=== PATIENT | female | born 1955 | race Caucasian/White ===

== ENCOUNTER 2019-04-06 11:45 | Inpatient (IN) ==
--- NOTE | 2019-03-30 10:28 | PAT Medication Instructions ---
Medication Instructions Date of Service March 30, 2019 Home Medications cholecalciferol (vitamin D3) [Vitamin D3] 1,000 unit PO DAILY lysine [L-Lysine] 500 mg PO DAILY kfhcdynm-pee-qimr-FA-lutein [Centrum Silver Women] 1 tab PO DAILY STOP taking 2 weeks before surgery lysine [L-Lysine] 500 mg PO DAILY DO NOT take the morning of surgery cholecalciferol (vitamin D3) [Vitamin D3] 1,000 unit PO DAILY xnrjkpbi-ufn-tlyv-FA-lutein [Centrum Silver Women] 1 tab PO DAILY Take morning of surgery NOTHING TO EAT OR DRINK AFTER MIDNIGHT Other Notes If you have any questions please call us at [phone] or [phone] or [phone] or [phone]
--- NOTE | 2019-03-30 15:35 | Anesthesiology Consultation ---
Date of Service March 30, 2019 Assessment & Plan (1) Encounter for pre-operative examination: - No previous anesthesia records available. Chart Review Chart Review: Acceptable Risk for Surgery and Patient seen in Pre Admission Testing Consults Requested medical (Dr. Edmundo Huynh (04/02)) Patient was seen by PCPs office on 04/02/19 for preoperative evaluation. Per note from that visit, "Patient doing well, no concerns. Pre-procedural testing with no abnormalities. Clear to proceed with planned surgical procedure." Teaching & Discussion Pre-Anesthesia Teaching/Discussion Notes: Instructed NPO after midnight before surgery, except medications with 15 cc of water. Medication instructions provided according to the PAT guidelines. History Surgery Operation Date: 04/06/19 13:05 Proposed Procedures p L4-S1 Lumbar Decompression and Fusion with Spinal Cord Monitoring - [place], Height/Weight Height: 5 ft 7.5 in Weight: 63.7 kg Allergies Allergy/AdvReac Type Severity Reaction Status Date / Time latex Allergy Unknown itchy rash Verified 03/27/19 13:39 Medications Home Medications Medication Instructions Recorded Confirmed Last Taken cholecalciferol (vitamin D3) 1,000 unit PO DAILY 03/27/19 03/27/19 Unknown [Vitamin D3] lysine [L-Lysine] 500 mg PO DAILY 03/27/19 03/27/19 Unknown ewbydtjw-fvq-dynl-FA-lutein 1 tab PO DAILY 03/27/19 03/27/19 Unknown [Centrum Silver Women] Past Medical History Medical History Spinal stenosis Spondylisthesis Exercise / Class Metabolic Activity II 4-5 Yardwork/Stairs/Walk up hill (Less active in the last 2 months due to back pain and numbness in left foot. Able to climb stairs. Denies CP or SOB with activity. Does state that pain seems to take her breath away at times. ) Past Family History Family History Other Family history of diabetes mellitus (DM) Past Surgical History Surgical History History of appendectomy History of colonoscopy History of hysterectomy "COMPLETE" History of tonsillectomy and adenoidectomy Past Anesthesia History No Hx of Anesthesia Complications and No Family Hx of Anesthesia Complications History of PONV No Hx of PONV and No Hx of Motion Sickness Social History Smoking Status: Never smoker Do You Dip or Chew Tobacco: No Hx Alcohol Use: No Hx Substance Use: No substance use type: does not use Review of Systems Patient denies chest pain, shortness of breath, dyspnea on exertion, reflux, cough, wheezing, palpitations. +Joint Pain (Back) +Heart Palpitations (rare - PCP is not concerned, worse with anxiety) Physical Exam Vital Signs BP: 136/80 P: 87 R: 16 T: 98.2 SPO2: 100% on RA ENMT Thyromental Distance: > or= 3.5 Finger Breadths (4) Mallampati Class: I Neck normal visual inspection and trachea midline; neck extension not limited Respiratory normal respiratory effort Auscultation: lungs clear to auscultation bilaterally Cardiovascular Rate/Rhythm: regular rate and regular rhythm Heart Sounds: no murmur Neurologic moves all extremities Psychiatric Orientation: alert and oriented x 3 Testing Laboratory Results 03/30/19 16:03 03/30/19 16:03 PT 10.1 Seconds (9.0-12.0) 03/30/19 16:03 INR 1.0 (0.9-1.1) 03/30/19 16:03 APTT 25.9 Seconds (21.0-31.0) 03/30/19 16:03 Urine Color Yellow 03/30/19 Unknown Urine Appearance Clear (Clear) 03/30/19 Unknown Urine pH 8.0 (4.5-7.5) H 03/30/19 Unknown Ur Specific [place] 1.011 (1.000-1.030) 03/30/19 Unknown Urine Protein Negative (Negative) 03/30/19 Unknown Urine Glucose (UA) Negative (Negative) 03/30/19 Unknown Urine Ketones Negative (Negative) 03/30/19 Unknown Urine Nitrite Negative (Negative) 03/30/19 Unknown Ur Leukocyte Esterase Negative (Negative) 03/30/19 Unknown Urine WBC (Auto) 0 /hpf (0-5) 03/30/19 Unknown Urine RBC (Auto) 0-4 /hpf (0-4) 03/30/19 Unknown U Hyaline Cast (Auto) 0 /lpf (0-5) 03/30/19 Unknown U Epithel Cells (Auto) 0-5 /lpf (0-5) 03/30/19 Unknown Urine Bacteria (Auto) Negative (Negative) 03/30/19 Unknown Blood Type O Positive 03/30/19 16:03 Antibody Screen NEGATIVE 03/30/19 16:03 Electrocardiogram Date: 03/30/19 Findings: + NSR @ (84) Chest X-Ray Date: 03/30/19 Findings: + NAD
--- NOTE | 2019-03-30 16:27 | XRay Report ---
XR chest Pre-admission PA/Lat CLINICAL HISTORY: PAT preoperative evaluation COMPARISON STUDY: No previous studies for comparison. FINDINGS: The bones soft tissues and hemidiaphragms are normal. The cardiomediastinal silhouette is n ormal. The lungs are clear. The pulmonary vasculature is normal. IMPRESSION: Negative chest. The above report was generated using voice recognition software. It may contain grammatical, syntax or spelling errors. Electronically signed by: Jun Salinas M.D. 03/30/2019 4:26 PM
[2019-03-30 16:29] LABS: Basophils # (auto) 0.04 K/uL (0-0.2); Basophils % (auto) 0.7 %; Eosinophils # (auto) 0.08 K/uL (0-0.5); Eosinophils % (auto) 1.4 %; Hematocrit (blood only) 42.8 % (37-47); Hemoglobin 14.6 g/dL (12.0-16.0); Immature Granulocytes # (auto) 0.02 K/uL (0.00-0.02); Immature Granulocytes % (auto) 0.4 %; Lymphocytes % (auto) 23.3 %; Mean Corpuscular Hgb Conc 34.1 g/dL (32-36); Mean Corpuscular Volume 92.2 fL (80-100); Mean Platelet Volume 10.6 fL (7.4-10.4); Monocytes # (auto) 0.61 K/uL (0.11-0.59); Monocytes % (auto) 10.9 %; Neutrophils # (auto) 3.53 K/uL (1.4-6.5); Neutrophils % (auto) 63.3 %; Platelet Count 246 K/uL (130-400); RDW Coefficient of Variation 13.2 % (11.5-14.5); RDW Standard Deviation 44.3 fL (36.4-46.3); Red Blood Count 4.64 M/uL (4.2-5.4); White Blood Count 5.58 K/uL (4.8-10.8)
[2019-03-30 16:35] LABS: Appearance Urine Clear (Clear); Bacteria Urine Automated Negative (Negative); Bilirubin Urine Negative (Negative); Blood Urine Trace (Negative); Cast Urine Automated 0 /lpf (0-5); Color Urine Yellow; Epithelial Cell Urine Auto 0-5 /lpf (0-5); Glucose Urine UA Negative (Negative); Ketones Urine Negative (Negative); Leukocyte Esterase Urine Negative (Negative); Nitrite Urine Negative (Negative); Protein Urine Negative (Negative); RBC Urine Automated 0-4 /hpf (0-4); Specific Gravity Urine 1.011 (1.000-1.030); Urobilinogen Urine Negative (Negative); WBC Urine Automated 0 /hpf (0-5)
[2019-03-30 16:37] LABS: BUN Creatinine Ratio 12.9 (10-20); Calcium 9.3 mg/dl (8.5-10.1); Creatinine Clr Calc Pharmacy 86.8 ml/min; Est GFR (African American) 108.5; Est GFR (Non-African American) 93.6; Potassium 3.9 mmol/L (3.5-5.1)
[2019-03-30 16:40] LABS: Partial Thromboplastin Time 25.9 Seconds (21.0-31.0); Prothrombin Time 10.1 Seconds (9.0-12.0)
[~2019-04-06 11:45] MED LIST: ACETAMINOPHEN 500 MG TAB PO SCH; CEFAZOLIN 1000MG 1,000 MG/7.5 ML SYR IV SCH; CeleBREX 200 MG CAP PO SCH; DEXAMETHASONE SOD INJ 4 MG/ML VIAL ONE; GABAPENTIN 300 MG CAP PO SCH; GLYCOPYRROLATE 0.2 MG/ML VIAL ONE; HYDROmorphone INJ 2 MG/ML SYR/VIAL ONE; LARYING-O-JET KIT (LTA) ONE; LIDOCAINE HCL 2% 2 ML VIAL/AMP(20MG/ML) INFIL ONE; LR 15ML/HR IV SCH; MIDAZOLAM HCL 1 MG/ML 2ML VIAL ONE; NEOSTIGMINE METHYLSULFATE 1 MG/ML 10ML VIAL ONE; ONDANSETRON INJ 2 MG/ML 2 ML VIAL ONE; PROPOFOL IV EMULSION 10 MG/ML 20 ML VIAL IV ONE; fentaNYL citrate 100 MCG/2 ML VIAL ONE
[2019-04-06] MEDS ORDERED: ONDANSETRON INJ 2 MG/ML 2 ML VIAL IV PRN ×2 (12:53→17:47)
[2019-04-06] MEDS ORDERED: LABETALOL HCL IV 5 MG/ML 20ML IV PRN (12:53)
[2019-04-06] MEDS ORDERED: ATROPINE SULFATE 0.1 MG/ML 10ML SYR IV PRN (12:53)
[2019-04-06] MEDS ORDERED: HYDROmorphone INJ 1 MG/ML SYRINGE IV PRN (12:53)
--- NOTE | 2019-04-06 12:55 | History & Physical Bridge Note ---
Date of Service April 06, 2019 History & Physical Bridge Note I have examined the patient, reviewed the History & Physical and in the interval since the performance of the History & Physical I have noted the following changes of clinical significance: no changes noted
--- NOTE | 2019-04-06 12:56 | History & Physical Report ---
Date of Service April 06, 2019 Assessment & Plan (1) Spinal stenosis, lumbar region with neurogenic claudication: Lumbar decompression and fusion L4-S1 Present on Admission?: Yes History of Present Illness Chief Complaint: Back and leg pain Primary Care Provider: Edmundo Huynh This is a 63-year-old female presents with chronic persistent back and leg pain after failing extensive course of nonoperative care is here for surgical intervention. Allergies Allergy/AdvReac Type Severity Reaction Status Date / Time latex Allergy Unknown itchy rash Verified 04/06/19 12:22 Home Medications Home Medications Medication Instructions Recorded Confirmed Type cholecalciferol (vitamin D3) 1,000 unit PO DAILY 03/27/19 04/06/19 History [Vitamin D3] lysine [L-Lysine] 500 mg PO DAILY 03/27/19 04/06/19 History yocbidur-sje-xutn-FA-lutein 1 tab PO DAILY 03/27/19 04/06/19 History [Centrum Silver Women] Past Med/Surg History Social History Preferred Language: Burkinan Communication Ability: Effective Physics Tutor Required: No Beliefs That Will Affect Care: None Current Living Situation: Spouse Other Information That Helps Us Care for You: No Feels Safe at Home: Yes Smoking Status: Never smoker Do You Dip or Chew Tobacco: No ; Hx Alcohol Use: No Hx Substance Use: No Physical Exam Physical Exam: Patient alert and oriented neurologically intact. Results & Data Vital Signs (Past 12 Hours) Vital Signs Temp Pulse Resp BP Pulse Ox 04/06/19 12:28 36.6 C 98 H 20 150/84 H 99
[2019-04-06] MEDS ORDERED: BACITRACIN INJ 50,000 UNIT VIAL ONE (13:15)
[2019-04-06] MEDS ORDERED: BUPIVACAINE/EPINEPHRINE 0.5% MPF 1:200,000 30 ML VIAL ONE (13:15)
[2019-04-06] MEDS ORDERED: FLOSEAL HEMOSTATIC MATRIX 10ML TOP ONE (14:05)
[2019-04-06] MEDS ORDERED: PHENYLEPHRINE 100MCG/ML 5ML SYR ONE ×2 (14:34→15:53)
[2019-04-06] MEDS ORDERED: ALBUMIN HUMAN 5% 12.5 GM/250 ML VIAL IV ONE ×3 (14:47→15:54)
--- NOTE | 2019-04-06 16:18 | Operative Report ---
Post Operative Report Pre & Post Diagnosis Operation Date: 04/06/19 13:05 Pre-Op Diagnosis: LUMBAR SPINAL STENOSIS W/NEUROGENIC CLAUDICATION L4-S1 Lumbar spondylolisthesis L4-5 L5-S1 Post-Op Diagnosis: Same Procedure Operation Date: 04/06/19 13:05 Actual Procedures #1 lumbar decompression with bilateral medial facetectomies and foraminotomies L3-4 L4-5 L5-S1. #2 posterior spinal fusion L4-5 L5-S1. #3 placement posterior instrumentation L4-5 L5-S1. #4 interbody fusion L4-5 L5-S1. #5 placed a peek cage 10 x 22 mm at L4-5 13 x 22 mm at L5-S1. #6 treatment of local autograft in the posterior lateral gutters per #7 patient infuse collagen sponge, mass graft the posterior gutters and ostial amp and interbody space. Surgeon [place], Social Media Marketing Analyst Rocio Alexandra Estimated Blood Loss 1,000 Findings See Below Patient had severe spinal stenosis with spondylolisthesis and marked adhesion to the dura throughout the decompression. This combined with 1000 cc blood loss created significant technical difficulty adding at least 50% increase in operative time. Specimens None Indications This is a 63-year-old female who presents with above-mentioned diagnosis after failing extensive course of nonoperative care is here for the above-mentioned procedure. Description of Procedure Patient was met with identified and informed consent obtained. Patient was then taken to the operative suite underwent intubation placed in the prone position the Sachin table on top of the Donovan frame. All bony prominences lumbar spine was prepped and draped in a normal sterile fashion. Sharp dissection with the assistance of Bovie cautery was performed down to and exposing the lamina transverse processes of L for L5 and S1 levels bilaterally. From a caudal to cephalad fashion complete laminectomy L5 for partial laminectomy of L3 was performed including bilateral medial facetectomies and foraminotomies addressing severe spinal stenosis. Marked adhesion to the dura from the inflammation was noted and addressed. After this complete pedicle screws were placed in L4-L5 and S1 levels bilaterally with assistance of fluoroscopy the purposes mayo placed. By way of a transforaminal approach on the right complete discectomy of L5-S1 is performed endplates curetted to subcortical being bone and a 13 x 22 mm peek cage filled with ostium bone graft tapped in position. Then proceeded L for 5. By way of a transforaminal approach and left complete discectomy was performed endplates curetted to subcortical being bone and a 10 x 22 mm peek cage filled with ostium bone graft tapped in position. The rods were then locked in final position bilaterally. The transverse processes of L for L5 and the sacral ala bur to subcortical being bone. Infuse collagen sponge mass graft and local autograft placed in the posterior lateral gutters. 15 round AKIN drain inserted. Incision was then closed with 1 Vicryl in the fascia 2-0 Vicryl substantially and 4 Monocryl for final skin closure. Steri-Strip sterile dressings placed. Patient will continue PACU stable disc. Please note Rocio Alexandra present throughout the entire procedure involved the patient positioning complex portions of the surgery and final skin closure. Lastly spinal cord monitoring was utilized that the procedure no changes noted. I attest to the content of the Intraoperative Record and any orders documented therein. Any exceptions are noted below.
[2019-04-06] MEDS ORDERED: ONDANSETRON INJ 2 MG/ML 2 ML VIAL ONE (16:40)
--- NOTE | 2019-04-06 16:40 | Fluoroscopy Report ---
FL lumbar spine 2-3V CLINICAL HISTORY: L4-S1 LUMBAR DECOMPRESSION AND FUSION COMPARISON STUDY: None FLUOROSCOPY TIME: 20 seconds NUMBER OF FLUOROSCOPIC IMAGES: 2 FINDINGS: Image intensifier utilized for a lower lumbar laminectomy and fusion IMPRESSION: Image intensifier usage for an L4-S1 laminectomy and fusion The above report was generated using voice recognition software. It may contain grammatical, syntax or spelling errors. Electronically signed by: Jun Salinas M.D. 04/06/2019 4:39 PM
--- NOTE | 2019-04-06 17:27 | Anesthesiology Progress Note ---
Date of Service April 06, 2019 Anesthesia Post Procedure Vital Signs Vital Signs: Temp Pulse Pulse Resp BP Pulse Ox 04/06/19 17:20 36.4 C L 85 20 100/51 L 99 04/06/19 17:10 36.3 C L 85 16 104/50 L 99 04/06/19 17:00 93 H 16 105/48 L 100 04/06/19 16:50 88 18 103/46 L 100 04/06/19 16:40 87 12 102/50 L 100 04/06/19 16:34 36.9 C 88 15 116/51 L 100 04/06/19 12:28 36.6 C 98 H 20 150/84 H 99 Pain Intensity Bilateral Medial Back: Pain Intensity: 2 Back: Pain Intensity: 4 Notes Mental Status: alert / awake / arousable and participated in evaluation Nausea / Vomiting: adequately controlled Pain: adequately controlled Airway Patency, RR, SpO2: stable & adequate BP & HR: stable & adequate Hydration State: stable & adequate
--- NOTE | 2019-04-06 17:31 | Anesthesiology Progress Note ---
Date of Service April 06, 2019 Anesthesia Post Procedure Vital Signs Vital Signs: Temp Pulse Pulse Resp BP Pulse Ox 04/06/19 17:20 36.4 C L 85 20 100/51 L 99 04/06/19 17:10 36.3 C L 85 16 104/50 L 99 04/06/19 17:00 93 H 16 105/48 L 100 04/06/19 16:50 88 18 103/46 L 100 04/06/19 16:40 87 12 102/50 L 100 04/06/19 16:34 36.9 C 88 15 116/51 L 100 04/06/19 12:28 36.6 C 98 H 20 150/84 H 99 Pain Intensity Bilateral Medial Back: Pain Intensity: 2 Back: Pain Intensity: 4 Transfer of Care Handoff Completed per policy Notes Mental Status: alert / awake / arousable and participated in evaluation Patient Amnestic to Procedure: Yes Nausea / Vomiting: adequately controlled Pain: adequately controlled Airway Patency, RR, SpO2: stable & adequate BP & HR: stable & adequate Hydration State: stable & adequate Anesthetic Complications: no major complications apparent and Pt Satisfied with anesthetic care
[2019-04-06] MEDS ORDERED: ONDANSETRON 4 MG TAB PO PRN (17:47)
[2019-04-06] MEDS ORDERED: PROMETHAZINE HCL 12.5 MG in SODIUM CHLORIDE 0.9% 50 ML IV PRN (17:47)
[2019-04-06] MEDS ORDERED: FAMOTIDINE 20 MG TAB PO PRN (17:47)
[2019-04-06] MEDS ORDERED: LORazepam 0.5 MG/1 ML VIAL IV PRN (17:47)
[2019-04-06] MEDS ORDERED: HYDROmorphone INJ 0.5 MG/0.5 ML SYR IV PRN (17:47)
[2019-04-06] MEDS ORDERED: MAGNESIUM HYDROXIDE SUSP 30 ML UDC PO PRN (17:47)
[2019-04-06] MEDS ORDERED: ALUMINUM/MAGNESIUM SUSP 30 ML UDC PO PRN (17:47)
[2019-04-06] MEDS ORDERED: BISACODYL 10 MG SUPP PR PRN (17:47)
[2019-04-06] MEDS ORDERED: DO NOT ADMINISTER FLU VACCINE PRN (17:47)
[2019-04-06] MEDS ORDERED: NALOXONE HCL 0.4 MG/1 ML VIAL/CARP IV PRN (17:47)
[2019-04-06] MEDS ORDERED: METOCLOPRAMIDE HCL INJ 5 MG/ML 2 ML VIAL IV PRN (17:47)
[2019-04-06] MEDS ORDERED: DO NOT ADMINISTER PNEUMOCOCCAL VACCINE PRN (17:47)
[2019-04-06] MEDS ORDERED: ACETAMINOPHEN 1,000 MG/100 ML VIAL IV PRN (17:47)
[2019-04-06] MEDS ORDERED: SOD PHOSPHATE/SOD BIPHOSPHATE ENEMA 132 ML BTL PR PRN (17:47)
[2019-04-06] MEDS: KETOROLAC TROMETHAMINE 15 MG/ML VIAL IV SCH ×2 (18:24→23:18)
[2019-04-06] MEDS: LACTATED RINGER'S 1,000 ML IV SCH ×2 (18:24→22:35)
[2019-04-06 19:13] LABS: Hematocrit (blood only) 28.7 % (37-47); Hemoglobin 9.8 g/dL (12.0-16.0)
[2019-04-06] MEDS: CEFAZOLIN 1000MG 1,000 MG/7.5 ML SYR IV SCH (20:53)
[2019-04-06] MEDS: DOCUSATE SODIUM/SENNA 50/8.6MG TAB PO SCH (21:01)
[2019-04-06] MEDS: ACETAMINOPHEN 500 MG TAB PO PRN (21:40)
[2019-04-06] MEDS: LORazepam 0.5 MG TAB PO PRN ×2 (22:30→23:40)
[2019-04-06] MEDS: OXYCODONE HCL IR 5 MG TAB (IMMEDIATE RELEASE) PO PRN (23:23)
[2019-04-07] MEDS: LACTATED RINGER'S 1,000 ML IV SCH ×5 (02:19→21:10)
[2019-04-07] MEDS: OXYCODONE HCL IR 5 MG TAB (IMMEDIATE RELEASE) PO PRN ×2 (04:08→23:33)
[2019-04-07] MEDS: KETOROLAC TROMETHAMINE 15 MG/ML VIAL IV SCH ×2 (05:52→12:28)
[2019-04-07 05:53] LABS: Hematocrit (blood only) 19.1 % (37-47); Hemoglobin 6.6 g/dL (12.0-16.0); Mean Corpuscular Hgb Conc 34.6 g/dL (32-36); Mean Corpuscular Volume 91.8 fL (80-100); Mean Platelet Volume 9.8 fL (7.4-10.4); Platelet Count 114 K/uL (130-400); RDW Coefficient of Variation 13.1 % (11.5-14.5); Red Blood Count 2.08 M/uL (4.2-5.4); White Blood Count 8.37 K/uL (4.8-10.8)
[2019-04-07] MEDS: CEFAZOLIN 1000MG 1,000 MG/7.5 ML SYR IV SCH (05:53)
[2019-04-07] MEDS: POLYETHYLENE (MIRALAX) 17 GM PACK PO SCH ×4 (05:53→23:33)
[2019-04-07 06:17] LABS: Calcium 7.8 mg/dl (8.5-10.1); Creatinine Clr Calc Pharmacy 102.9 ml/min; Est GFR (African American) 115.5; Est GFR (Non-African American) 99.6; Potassium 3.9 mmol/L (3.5-5.1)
[2019-04-07 06:38] LABS: Basophils # (auto) 0.01 K/uL (0-0.2); Basophils % (auto) 0.1 %; Eosinophils # (auto) 0.02 K/uL (0-0.5); Eosinophils % (auto) 0.2 %; Immature Granulocytes # (auto) 0.02 K/uL (0.00-0.02); Immature Granulocytes % (auto) 0.2 %; Lymphocytes # (auto) 0.98 K/uL (1.2-3.4); Lymphocytes % (auto) 11.7 %; Monocytes # (auto) 0.82 K/uL (0.11-0.59); Monocytes % (auto) 9.8 %; Neutrophils # (auto) 6.52 K/uL (1.4-6.5); RBC Morphology Unremarkable
[2019-04-07] MEDS ORDERED: SODIUM CHLORIDE 0.9% 250 ML IV PRN (07:47)
--- NOTE | 2019-04-07 08:12 | Anesthesiology Progress Note ---
Date of Service April 07, 2019 Anesthesia Post Procedure Vital Signs Vital Signs: Temp Pulse Pulse Resp BP Pulse Ox 04/07/19 07:29 36.5 C 86 16 93/55 L 99 04/07/19 03:51 36.6 C 88 16 90/54 L 100 04/06/19 23:04 36.3 C L 86 18 125/77 100 04/06/19 20:36 36.4 C L 77 17 88/55 L 100 04/06/19 19:36 36.4 C L 86 17 86/55 L 100 04/06/19 18:25 36.5 C 74 18 92/59 L 100 04/06/19 18:05 83/49 L 04/06/19 18:02 36.4 C L 79 17 75/42 L 100 04/06/19 17:30 36.5 C 85 16 91/52 L 100 04/06/19 17:20 36.4 C L 85 20 100/51 L 99 04/06/19 17:10 36.3 C L 85 16 104/50 L 99 04/06/19 17:00 93 H 16 105/48 L 100 04/06/19 16:50 88 18 103/46 L 100 04/06/19 16:40 87 12 102/50 L 100 04/06/19 16:34 36.9 C 88 15 116/51 L 100 04/06/19 12:28 36.6 C 98 H 20 150/84 H 99 Pain Intensity Bilateral Medial Back: Pain Intensity: 2 Back: Pain Intensity: 4 Notes Mental Status: alert / awake / arousable and participated in evaluation Patient Amnestic to Procedure: Yes Nausea / Vomiting: adequately controlled Pain: adequately controlled Airway Patency, RR, SpO2: stable & adequate BP & HR: stable & adequate Hydration State: stable & adequate Anesthetic Complications: no major complications apparent and Pt Satisfied with anesthetic care
[2019-04-07] MEDS: CHOLECALCIFEROL 1,000 UNITS TAB PO SCH (08:53)
[2019-04-07] MEDS ORDERED: DEXAMETHASONE SOD PHOSPHATE 8 MG in SYRINGE 0 ML IV STA (11:13)
--- NOTE | 2019-04-07 12:35 | Consultation ---
Date of Consultation April 07, 2019 Assessment & Plan (1) Spinal stenosis, lumbar region with neurogenic claudication: POD #1 Lumbar decompression/fusion L4-S1 by Dr. Park complicated with intraoperative blood loss of 1L otherwise tolerated procedure well EBL 1L; AKIN drain 130ml pain/wound management per ortho activity and therapy as directed by ortho; recommend bedrest until H/H improved and hemodynamics improved incentive spirometry continue to monitor H/H; transfuse as needed (2) Acute blood loss anemia: Preoperative H&H 14.6 and 42.8 Currently H&H 6.6 and 19.1, platelet count 114 Likely in setting of acute blood loss anemia with intraoperative blood loss 1 L 2 units of PRBC ordered and currently being transfused Continue to monitor hemodynamics H&H every 6 hours, keep hemoglobin greater than 8 (3) Cardiac murmur: Denies prior hx of cardiac murmur last stress echo ~15 yrs ago denies cp/sob, no significant ecg changes obtain echo due to murmur noted on exam, 1/6 DANIEL noted cardiac apex, mid clavicular line no radiation (4) DVT prophylaxis: SCD/TEDS Disposition: to be determined Follow up: PCP Dr. Huynh upon discharge Patient was seen and examined in collaboration with Dr. Dean, please see addendum Starting 03/31/2019 patient will be under the care of Dr. Stinson Thank you for this consultation. We will follow the patient with you during their hospital stay. You [facility] via pager @ [phone]. Supervising Physician Co-Signing Physician Notes Pt was seen and examined. Agreed with Bianka GREGORY exam, assessment and plan. 63-year-old female who has no significant past medical history, s/p lumbar decompression and spinal fusion performed today by dr. Park after failing outpatient conservation management for chronic low back pain with radiculopathy. [facility] hospitalist was consulted for a low grade heart murmur heard by the nurse. Loss 1L of blood during the procedure and hgb was 6.6 this morning. currently she is being transfused 2 unit PRBC. BP in the low side. Denies any symptom. Will sent to telemetry. Will get an echo. Will monitor H/H for now. MD Dianne History of Present Illness Requesting Physician: Dr. Park Reason for Consultation: Abnormal Heart Sounds Attending Physician: Nicholas Park, DO History of Present Illness This is a 63-year-old female who has no significant past medical history who presents to [facility] for elective lumbar procedure. Patient underwent L4-S1 lumbar decompression fusion by Dr. Park due to failed outpatient conservative treatment due to chronic low back pain with radiculopathy. We have been consulted secondary to the nurse hearing, "abnormal heart sounds." Intraoperatively patient had 1 L of blood loss. Today on her CBC her hemoglobin and hematocrit was noted to be 6.6 and 19.1; therefore, 2 units of PRBC were ordered. Currently patient complains of incisional pain in her back along with cramps in her legs last night. She elicits a cramps in her legs are also present prior to her surgery. She overall feels fatigued and, "weary." She occasionally has palpitations. She denies any bharti lightheadedness, dizziness or syncope but has not been out of bed today. Denies fever, chills, sweats, chest pain, shortness of breath, orthopnea, edema, nausea, vomiting, diarrhea, abdominal pain. She is passing flatulence. Continues to have Malcolm catheter in place. Tolerating p.o. intake and drinking liquids, somewhat diminished appetite. 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 When she woke up from procedure she has had decreased hearing in her right ear. Denies any tinnitus, sinus congestion, rhinorrhea or URI symptoms. She is otherwise healthy and denies any prior history of HTN, HLD, heart disease, diabetes. Last cardiac testing was approx 15 yrs ago had stress test. Positive family history of CAD, father had a CABG at age 59. Denies any smoking or alcohol use. Lives at home with her . Allergies Allergy/AdvReac Type Severity Reaction Status Date / Time latex Allergy Unknown itchy rash Verified 04/06/19 12:22 Home Medications Home Medications Medication Instructions Recorded Confirmed Type cholecalciferol (vitamin D3) 1,000 unit PO DAILY 03/27/19 04/06/19 History [Vitamin D3] lysine [L-Lysine] 500 mg PO DAILY 03/27/19 04/06/19 History [id number] 1 tab PO DAILY 03/27/19 04/06/19 History [Centrum Silver Women] Patient History Medical History Spinal stenosis Spondylisthesis Surgical History History of tonsillectomy and adenoidectomy History of appendectomy History of colonoscopy History of hysterectomy "COMPLETE" Family History Father Coronary heart disease, Onset Age: 59 CABG Sepsis Mother Diabetes Hypertension Leukemia Brother Heart disease Brother Heart disease Other Family history of diabetes mellitus (DM) Social History Preferred Language: Amharic Communication Ability: Effective Recycling Collections Driver Required: No Beliefs That Will Affect Care: None Current Living Situation: Spouse Other Information That Helps Us Care for You: No Feels Safe at Home: Yes Smoking Status: Never smoker Do You Dip or Chew Tobacco: No ; Hx Alcohol Use: No Hx Substance Use: No Review of Systems Review of Systems: All systems reviewed & are unremarkable except as noted in HPI & below Physical Exam Physical Exam: Constitutional: WD/WN, vitals as above, pale, NAD, sitting up in bed, pleasant, conversing easily Head: Normocephalic, Atraumatic Eyes: PERRL, conjunctivae normal, anicteric sclerae ENMT: external ear and nose normal, oropharynx fazal, b/l EAC clean dry, TM WNL Neck: trachea midline, no thyromegaly normal visual inspection Respiratory: normal respiratory effort, lungs clear to auscultation, no wheeze, rales, rhonchi. Normal insp/exp effort, no accessory muscle use Cardiovascular: RRR, 1/6 murmur noted at cardiac apex, no edema Vessels: no JVD or carotid bruit Chest: normal inspection of chest Abdomen: normal bowel sounds, soft, nontender, no hepatosplenomegaly Musculoskeletal: no cyanosis or clubbing, extremities motor strength 5/5 Skin: no rashes, warm and dry normal turgor , lumbar dressing CDI, AKIN drain with scant serosang drainage Neurologic: PERRL, EOMI, accommodation nl, no face palsy, no dysarthria CN's II-XI intact bilaterally and moves all extremities Psychiatric: A+Ox3, euthymic affect Lymphatic: no cervical or axillary lymphadenopathy : deferred Results & Data Vital Signs (Past 12 Hours) Vital Signs Temp Pulse Pulse Resp BP BP Pulse Ox 04/07/19 11:28 36.6 C 102 H 16 97/61 L 97 04/07/19 11:27 36.7 C 98 H 18 91/56 L 99 04/07/19 11:25 36.7 C 18 91/56 L 98 04/07/19 10:28 36.4 C L 100 H 16 108/52 L 99 04/07/19 09:28 36.4 C L 105 H 16 123/50 L 100 04/07/19 08:58 36.6 C 101 H 16 97/58 L 98 04/07/19 08:43 36.8 C 110 H 16 101/58 L 04/07/19 08:25 36.5 C 92 H 18 95/58 L 98 04/07/19 07:29 36.5 C 86 16 93/55 L 99 04/07/19 03:51 36.6 C 88 16 90/54 L 100 Laboratory Results Short CBC 04/06/19 04/07/19 Range/Units 19:00 05:21 WBC 8.37 (4.8-10.8) K/uL Hgb 9.8 L 6.6 L* D (12.0-16.0) g/dL Hct 28.7 L 19.1 L* (37-47) % Plt Count 114 L (130-400) K/uL BMP 04/07/19 05:21 Sodium 138 Potassium 3.9 Chloride 106 Carbon Dioxide 25 BUN 10 Creatinine 0.53 L Glucose 120 H Calcium 7.8 L Medications Administered Acetaminophen (Tylenol) 1,000 mg PO Q8H PRN PRN Reason: MILD Pain Rating 1,2,3 Stop: 05/06/19 17:46 Last Admin: 04/06/19 21:40 Dose: 1,000 mg Documented by: [id number] Lactated Ringer's (Lr) 1,000 mls @ 250 mls/hr IV .Q4H RICHA Stop: 05/06/19 17:46 Last Admin: 04/07/19 06:47 Dose: 250 mls/hr Documented by: [id number] Infusion: 04/07/19 06:19 Dose: 250 mls/hr Documented by: [id number] Admin: 04/07/19 02:19 Dose: 250 mls/hr Documented by: [id number] Infusion: 04/07/19 02:19 Dose: 250 mls/hr Documented by: [id number] Admin: 04/06/19 22:35 Dose: 250 mls/hr Documented by: [id number] Infusion: 04/06/19 22:35 Dose: 250 mls/hr Documented by: [id number] Infusion: 04/06/19 19:40 Dose: 250 mls/hr Documented by: [id number] Admin: 04/06/19 18:24 Dose: 150 mls/hr Documented by: [id number] Lorazepam (Ativan) 0.5 mg PO Q8H PRN PRN Reason: Sedation/Anxiety Stop: 05/06/19 17:46 Last Admin: 04/06/19 23:40 Dose: 0.5 mg Documented by: [id number] Admin: 04/06/19 22:30 Dose: 0.5 mg Documented by: [id number] Oxycodone HCl (Roxicodone Immediate Rel) 5 - 10 mg PO Q4H PRN PRN Reason: Moderate-Severe Pain Stop: 04/20/19 17:46 Last Admin: 04/07/19 04:08 Dose: 10 mg Documented by: [id number] Admin: 04/06/19 23:23 Dose: 10 mg Documented by: [id number] Polyethylene Glycol (Miralax Powder Packet) 17 gm PO Q6 RICHA Stop: 05/07/19 05:59 Last Admin: 04/07/19 12:34 Dose: 17 gm Documented by: [id number] Admin: 04/07/19 05:53 Dose: 17 gm Documented by: [id number] Senna/Docusate Sodium (Senokot S) 2 tab PO HS RICHA Stop: 05/06/19 20:59 Last Admin: 04/06/19 21:01 Dose: 2 tab Documented by: [id number] Vitamin D (Vitamin D3) 1,000 units PO DAILY RICHA Stop: 05/07/19 08:59 Last Admin: 04/07/19 08:53 Dose: 1,000 units Documented by: [id number] Discontinued Medications Acetaminophen (Tylenol) 1,000 mg PO PREOP RICHA Stop: 04/06/19 18:00 Last Admin: 04/06/19 12:49 Dose: 1,000 mg Documented by: [id number] Bacitracin (Bacitracin) Confirm Administered Dose 50,000 units .ROUTE .STK-MED ONE Stop: 04/06/19 13:16 Last Admin: 04/06/19 14:04 Dose: 50,000 units Documented by: [id number] Bupivacaine HCl/Epinephrine Bitart (Sensorcaine/Epinephrine 0.5% Mpf 1:200,000) Confirm Administered Dose 30 ml .ROUTE .STK-MED ONE Stop: 04/06/19 13:16 Last Admin: 04/06/19 14:04 Dose: 30 ml Documented by: [id number] Celecoxib (Celebrex) 200 mg PO PREOP RICHA Stop: 04/06/19 18:00 Last Admin: 04/06/19 12:49 Dose: 200 mg Documented by: [id number] Gabapentin (Neurontin) 300 mg PO PREOP RICHA Stop: 04/06/19 18:00 Last Admin: 04/06/19 12:49 Dose: 300 mg Documented by: [id number] Lactated Ringer's (Lr) 1,000 mls @ 15 mls/hr IV .Q24H RICHA Stop: 04/07/19 05:59 Last Infusion: 04/06/19 13:25 Dose: 0 mls/hr Documented by: [id number] Admin: 04/06/19 12:44 Dose: 15 mls/hr Documented by: [id number] Cefazolin Sodium (Ancef 1000mg) 1,000 mg in 7.5 mls @ 2.5 mls/min IV PREOP RICHA Stop: 04/06/19 18:00 Last Admin: 04/06/19 13:25 Dose: 2.5 mls/min Documented by: [id number] Cefazolin Sodium (Ancef 1000mg) 1,000 mg in 7.5 mls @ 150 mls/hr IV Q8H RICHA; Protocol Stop: 04/07/19 05:02 Last Admin: 04/07/19 05:53 Dose: 150 mls/hr Documented by: [id number] Admin: 04/06/19 20:53 Dose: 150 mls/hr Documented by: [id number] Dexamethasone Sodium Phosphate (8 mg/ Syringe) 2 mls @ 1 mls/min IV NOW STA Stop: 04/07/19 11:14 Last Admin: 04/07/19 12:27 Dose: 1 mls/min Documented by: [id number] Ketorolac Tromethamine (Toradol) 15 mg IV Q6H [facility] Stop: 04/07/19 12:01 Last Admin: 04/07/19 12:28 Dose: 15 mg Documented by: [id number] Admin: 04/07/19 05:52 Dose: 15 mg Documented by: [id number] Admin: 04/06/19 23:18 Dose: 15 mg Documented by: [id number] Admin: 04/06/19 18:24 Dose: 15 mg Documented by: [id number] Miscellaneous (Floseal Hemostatic Matrix 10ml) 10 ml TOP ONCE ONE Stop: 04/06/19 14:06 Last Admin: 04/06/19 16:14 Dose: 47 ml Documented by: [id number] ECG Rate (beats per minute): 99 Findings: + nonspecific-ST abn (v4-v6 st segment flattening compared to prior otherwise unchanged)
[2019-04-07 15:08] LABS: Hematocrit (blood only) 26.4 % (37-47); Hemoglobin 9.2 g/dL (12.0-16.0); Mean Corpuscular Hgb Conc 34.8 g/dL (32-36); Mean Platelet Volume 10.6 fL (7.4-10.4); Platelet Count 131 K/uL (130-400); RDW Coefficient of Variation 13.6 % (11.5-14.5); White Blood Count 8.09 K/uL (4.8-10.8)
--- NOTE | 2019-04-07 17:26 | Orthopedic Progress Note ---
Date of Service April 07, 2019 Assessment & Plan (1) Spinal stenosis, lumbar region with neurogenic claudication: This time she we will continue physical therapy as tolerated. We have consulted medicine regarding possible murmur. Present on Admission?: Yes Subjective Patient's back pain is controlled leg symptoms improving. Physical Exam Physical Exam: On exam she is good strength testing appears comfortable. Results & Data Vital Signs (Past 12 Hours) Vital Signs Temp Pulse Pulse Resp BP BP Pulse Ox 04/07/19 16:00 36.7 C 101 H 18 118/65 94 04/07/19 14:10 37 C 102 H 18 111/56 L 97 04/07/19 12:31 36.7 C 99 H 16 108/64 04/07/19 11:44 36.9 C 111 H 14 106/67 99 04/07/19 11:28 36.6 C 102 H 16 97/61 L 97 04/07/19 11:27 36.7 C 98 H 18 91/56 L 99 04/07/19 11:25 36.7 C 18 91/56 L 98 04/07/19 10:28 36.4 C L 100 H 16 108/52 L 99 04/07/19 09:28 36.4 C L 105 H 16 123/50 L 100 04/07/19 08:58 36.6 C 101 H 16 97/58 L 98 04/07/19 08:43 36.8 C 110 H 16 101/58 L 04/07/19 08:25 36.5 C 92 H 18 95/58 L 98 04/07/19 07:29 36.5 C 86 16 93/55 L 99
[2019-04-07] MEDS: DOCUSATE SODIUM/SENNA 50/8.6MG TAB PO SCH (19:00)
[2019-04-07] MEDS: TRAMADOL HCL 50 MG TABLET PO PRN (19:11)
[2019-04-07 19:15] LABS: Hematocrit (blood only) 27.4 % (37-47); Hemoglobin 9.4 g/dL (12.0-16.0); Mean Corpuscular Hgb Conc 34.3 g/dL (32-36); Mean Corpuscular Volume 90.7 fL (80-100); Mean Platelet Volume 10.4 fL (7.4-10.4); Platelet Count 125 K/uL (130-400); RDW Coefficient of Variation 13.6 % (11.5-14.5); RDW Standard Deviation 45.2 fL (36.4-46.3); Red Blood Count 3.02 M/uL (4.2-5.4); White Blood Count 7.16 K/uL (4.8-10.8)
[2019-04-08 01:40] LABS: Hematocrit (blood only) 25.5 % (37-47); Mean Corpuscular Hgb Conc 35.3 g/dL (32-36); Mean Corpuscular Volume 90.1 fL (80-100); Mean Platelet Volume 10.5 fL (7.4-10.4); Platelet Count 132 K/uL (130-400); RDW Coefficient of Variation 13.8 % (11.5-14.5); Red Blood Count 2.83 M/uL (4.2-5.4); White Blood Count 8.17 K/uL (4.8-10.8)
[2019-04-08] MEDS: TRAMADOL HCL 50 MG TABLET PO PRN (05:43)
[2019-04-08 05:52] LABS: Hematocrit (blood only) 25.1 % (37-47); Hemoglobin 8.8 g/dL (12.0-16.0); Mean Corpuscular Hgb Conc 35.1 g/dL (32-36); Mean Corpuscular Volume 90.3 fL (80-100); Mean Platelet Volume 10.1 fL (7.4-10.4); Platelet Count 125 K/uL (130-400); RDW Coefficient of Variation 13.9 % (11.5-14.5); RDW Standard Deviation 46.1 fL (36.4-46.3); Red Blood Count 2.78 M/uL (4.2-5.4); White Blood Count 7.24 K/uL (4.8-10.8)
[2019-04-08] MEDS: POLYETHYLENE (MIRALAX) 17 GM PACK PO SCH ×4 (06:06→23:48)
[2019-04-08 06:31] LABS: BUN Creatinine Ratio 20.2 (10-20); Calcium 8.1 mg/dl (8.5-10.1); Est GFR (African American) 114.8; Potassium 3.8 mmol/L (3.5-5.1)
[2019-04-08] MEDS: CHOLECALCIFEROL 1,000 UNITS TAB PO SCH (07:42)
[2019-04-08] MEDS: ACETAMINOPHEN 500 MG TAB PO PRN ×2 (11:49→21:24)
[2019-04-08] MEDS: OXYCODONE HCL IR 5 MG TAB (IMMEDIATE RELEASE) PO PRN ×2 (11:50→19:06)
--- NOTE | 2019-04-08 14:20 | Orthopedic Progress Note ---
Date of Service April 08, 2019 Assessment & Plan (1) Spinal stenosis, lumbar region with neurogenic claudication: This time we will continue physical therapy monitor her AKIN output transfer to the orthopedic floor today. Present on Admission?: Yes Subjective Back pain controlled leg pain improved. Still some numbness to left foot. Physical Exam 2 Physical Exam: Patient appears comfortable she has good strength testing. Results & Data Vital Signs (Past 12 Hours) Vital Signs Temp Pulse Resp BP BP Pulse Ox 04/08/19 14:17 36.9 C 96 H 18 92/55 L 94 04/08/19 11:42 36.7 C 89 18 112/59 L 95 04/08/19 07:10 37.0 C 85 17 117/61 97 04/08/19 04:00 36.7 C 86 17 106/48 L 96
--- NOTE | 2019-04-08 14:22 | Hospitalist Progress Note ---
Date of Service April 08, 2019 Assessment & Plan (1) Spinal stenosis, lumbar region with neurogenic claudication: POD #2 Lumbar decompression/fusion L4-S1 by Dr. Park Complicated with intraoperative blood loss of 1L EBL 1L; AKIN drain 130ml Pain/wound management per ortho activity and therapy as directed by ortho; recommend bedrest until H/H improved and hemodynamics improved incentive spirometry (2) Acute blood loss anemia: Preoperative H&H 14.6 and 42.8 Currently H&H 6.6 and 19.1, platelet count 114 Likely in setting of acute blood loss anemia with intraoperative blood loss 1 L 2 units of PRBC ordered and currently being transfused Continue to monitor hemodynamics Hemoglobin is stable at 8.8 on 04/08 (3) Cardiac murmur: Prior hx of cardiac murmur last stress echo ~15 yrs ago denies cp/sob, no significant ecg changes obtain echo due to murmur noted on exam, 2-3/6 DANIEL noted cardiac apex, mid clavicular line no radiation Echo; the left ventricle is hyperdynamic, there appears to be a dynamic outflow tract obstruction of mild severity likely due to the hyperdynamic state of the left ventricle, EF 70%, LV wall motion is normal Will discuss the echo findings with the vehicle assembly inspector. (4) DVT prophylaxis: SCD/TEDS Disposition: to be determined Follow up: PCP Dr. Huynh upon discharge Thank you for this consultation. We will follow the patient with you during their hospital stay. [facility] via pager @ [phone]. Subjective 04/08 The patient was seen and examined in telemetry unit She is status post lumbar decompression/fusion L4-S1, POD #2 She was transferred from medical unit to telemetry unit due to significant blood loss which required 2 units of blood transfusion She does not have any other complaints today and has been feeling a lot better Still complains to have back pain with radiation to the legs mostly on the left Review of Systems Review of Systems: All systems reviewed and are unremarkable except as noted below Constitutional: + weakness Cardiovascular: no chest pain Gastrointestinal: no abdominal pain Musculoskeletal: + back pain (Status post lumbar decompression and fusion. Radiation of pain to the legs mostly on the left) Physical Exam Physical Exam: Lying in bed very anxious with back pain Constitutional: + acute distress (Due to the pain) and + ill appearing Eyes: PERRL, conjunctivae normal, anicteric sclerae ENMT: external ear and nose normal, oropharynx normal Mouth: no dentition abnormality Mallampati Class: II Neck: normal visual inspection and trachea midline; neck extension not limited Respiratory: normal respiratory effort Auscultation: lungs clear to auscultation bilaterally Cardiovascular: Rate/Rhythm: regular rate and regular rhythm Heart Sounds: + murmur (2/6 ejection systolic murmur over precordium) Gastrointestinal (Abdomen): Inspection/Auscultation: abdomen normal to inspection Percussion/Palpation: abdomen soft Neurologic: moves all extremities Psychiatric: A+Ox3, euthymic affect Orientation: alert and oriented x 3 Lymphatic: no cervical or axillary lymphadenopathy Results & Data Vital Signs (Past 12 Hours) Vital Signs Temp Pulse Resp BP BP Pulse Ox 04/08/19 11:42 36.7 C 89 18 112/59 L 95 04/08/19 07:10 37.0 C 85 17 117/61 97 04/08/19 04:00 36.7 C 86 17 106/48 L 96 Laboratory Results Short CBC 04/07/19 04/07/19 04/08/19 Range/Units 15:00 19:04 01:16 WBC 8.09 7.16 8.17 (4.8-10.8) K/uL Hgb 9.2 L 9.4 L 9.0 L (12.0-16.0) g/dL Hct 26.4 L 27.4 L 25.5 L (37-47) % Plt Count 131 125 L 132 (130-400) K/uL 04/08/19 Range/Units 05:40 WBC 7.24 (4.8-10.8) K/uL Hgb 8.8 L (12.0-16.0) g/dL Hct 25.1 L (37-47) % Plt Count 125 L (130-400) K/uL BMP 04/08/19 05:40 Sodium 141 Potassium 3.8 Chloride 109 H Carbon Dioxide 27 BUN 11 Creatinine 0.54 L Glucose 103 H Calcium 8.1 L Medications Administered Current Inpatient Medications Acetaminophen (Tylenol) 1,000 mg PO Q8H PRN PRN Reason: MILD Pain Rating 1,2,3 Stop: 05/06/19 17:46 Last Admin: 04/08/19 11:49 Dose: 1,000 mg Documented by: [id number] Hydrox/Mg Hydrox/Simethicone (Maalox) 30 ml PO Q6H PRN PRN Reason: Dyspepsia Stop: 05/06/19 17:46 Bisacodyl (Dulcolax) 10 mg MD DAILY PRN PRN Reason: Constipation Stop: 05/06/19 17:46 Diphenhydramine HCl (Benadryl Capsule) 25 mg PO Q6H PRN PRN Reason: Allergic Rhinitis/Insomnia Stop: 05/06/19 17:46 Famotidine (Pepcid) 20 mg PO Q12H PRN PRN Reason: Dyspepsia Stop: 05/06/19 17:46 Hydromorphone HCl (Dilaudid) 0.5 - 1 mg IV Q3H PRN PRN Reason: Pain Stop: 04/20/19 17:46 Hydroxyzine HCl (Vistaril) 25 mg PO Q8H PRN PRN Reason: Anxiety Stop: 05/06/19 17:46 Acetaminophen (Ofirmev) 1,000 mg in 100 mls @ 400 mls/hr IV Q8 PRN PRN Reason: MILD Pain Rating 1,2,3 Stop: 05/06/19 17:46 Promethazine HCl 12.5 mg/ (Sodium Chloride) 50.5 mls @ 204 mls/hr IV Q6H PRN PRN Reason: Nausea &/or Vomiting Stop: 05/06/19 17:46 Lorazepam (Ativan) 0.5 mg in 1 mls @ 0.5 mls/min IV Q8H PRN PRN Reason: Sedation/Anxiety Stop: 05/06/19 17:46 Sodium Chloride (Nss) 250 mls @ 15 mls/hr IV .[id number] PRN PRN Reason: For Transfusion Stop: 05/07/19 07:46 Influenza Virus Vaccine Quadrival (Flu Vaccine, Do Not Administer) 1 ea N/A PRN PRN PRN Reason: Notification Stop: 05/06/19 17:46 Lorazepam (Ativan) 0.5 mg PO Q8H PRN PRN Reason: Sedation/Anxiety Stop: 05/06/19 17:46 Last Admin: 04/06/19 23:40 Dose: 0.5 mg Documented by: Magnesium Hydroxide (Milk Of Magnesia) 30 ml PO DAILY PRN PRN Reason: Constipation Stop: 05/06/19 17:46 Metoclopramide HCl (Reglan) 10 mg IV Q6H PRN PRN Reason: Nausea &/or Vomiting Stop: 05/06/19 17:46 Naloxone HCl (Narcan) 0.1 mg IV Q5M PRN; Protocol PRN Reason: Oversedation/Resp Depression Stop: 05/06/19 17:46 Ondansetron HCl (Zofran Tab) 4 mg PO Q6H PRN PRN Reason: Nausea Stop: 05/06/19 17:46 Ondansetron HCl (Zofran) 4 mg IV Q6H PRN PRN Reason: Nausea &/or Vomiting Stop: 05/06/19 17:46 Oxycodone HCl (Roxicodone Immediate Rel) 5 - 10 mg PO Q4H PRN PRN Reason: Moderate-Severe Pain Stop: 04/20/19 17:46 Last Admin: 04/08/19 11:50 Dose: 5 mg Documented by: Pneumococcal Polyvalent Vaccine (Pneumococcal Vacc, Do Not Administer) 1 ea N/A PRN PRN PRN Reason: Notification Stop: 05/06/19 17:46 Polyethylene Glycol (Miralax Powder Packet) 17 gm PO Q6 RICHA Stop: 05/07/19 05:59 Last Admin: 04/08/19 11:50 Dose: 17 gm Documented by: Senna/Docusate Sodium (Senokot S) 2 tab PO HS RICHA Stop: 05/06/19 20:59 Last Admin: 04/07/19 19:00 Dose: 2 tab Documented by: Sodium Biphosphate/Sodium Phosphate (Fleet Enema) 132 ml MD ONE PRN PRN Reason: Constipation Stop: 05/06/19 17:46 Tramadol HCl (Ultram) 50 - 100 mg PO Q4H PRN PRN Reason: Moderate-Severe pain Stop: 05/06/19 17:46 Last Admin: 04/08/19 05:43 Dose: 100 mg Documented by: Vitamin D (Vitamin D3) 1,000 units PO DAILY RICHA Stop: 05/07/19 08:59 Last Admin: 04/08/19 07:42 Dose: 1,000 units Documented by:
[2019-04-08] MEDS: DOCUSATE SODIUM/SENNA 50/8.6MG TAB PO SCH (21:23)
[2019-04-09] MEDS: OXYCODONE HCL IR 5 MG TAB (IMMEDIATE RELEASE) PO PRN ×2 (04:44→13:59)
[2019-04-09] MEDS: POLYETHYLENE (MIRALAX) 17 GM PACK PO SCH ×2 (06:11→12:07)
[2019-04-09] MEDS: TRAMADOL HCL 50 MG TABLET PO PRN ×2 (08:00→12:07)
--- NOTE | 2019-04-09 08:59 | Discharge Summary ---
Date of Service April 09, 2019 Admission HPI Per Admitting Provider This is a 63-year-old female presents with chronic persistent back and leg pain after failing extensive course of nonoperative care is here for surgical intervention. Principal Diagnosis Lumbar spinal stenosis with neurogenic claudication Discharge Data Allergies Allergy/AdvReac Type Severity Reaction Status Date / Time latex Allergy Unknown itchy rash Verified 04/06/19 12:22 Consultations 04/06/19 17:47 Consult Case Management - Discharge Planning Routine 04/07/19 11:12 Consult Hospitalist Routine Procedures Performed Operation Date: 04/06/19 13:05 Actual Procedures p L4-S1 Lumbar Decompression and Fusion, Interbody Cage L4-L5, L5-S1 with Spinal Cord Monitoring, Bone Morphogenetic Protein and Osteoamp Allograft(Not Applicable) - Nicholas Park DO Ordered Studies 04/06/19 13:05 FL fluoroscopy <1hr Routine FL lumbar spine 2-3V Routine Hospital Course (1) Spinal stenosis, lumbar region with neurogenic claudication: Patient underwent lumbar decompression fusion tolerated as well as taken to orthopedic for postoperative. She did require transfusion postop day 1 tolerated this well. She did have a cardiac evaluation determined to be normal. She progressed appropriately. AKIN drain decreasing probably. Subsequent discharge home. Discharge orders instructions can be found chart for further review. Total Time Total Time Spent Total Time Spent (In Minutes): 30 minutes Discharge Plan Discharge Items Patient Disposition: Home - Home Health Services Reason For Visit: LUMBAR SPINAL STENOSIS W/NEUROGENIC CLAUDICATION Discharge Diagnosis: Lumbar spinal stenosis with neurogenic claudication Discharge Goals: Decrease discomfort Activity: Per 'Additional Instructions' section Non-emergency contact: Primary Care Provider Call non-emergency contact if: you have any medication questions Follow-up/Referrals: Edmundo Huynh [Primary Care Provider] - Diet: Regular Addtl Provider Instructions: ACTIVITY RECOMMENDATIONS: SELF CARE INSTRUCTIONS AFTER THORACIC/LUMBAR FUSIONS 1. You may walk to your tolerance. It is good exercise for your legs and back. Expect some back and intermittent leg aches and pains. 2. You may perform "counter-top" level activities (make a sandwich, bernice with a project, etc.). 3. No bending or lifting of more than 10 pounds or back twisting of any nature (roll like a log when turning in bed). 4. You may ride in a car for 20-30 minutes at a time. No driving until after your first visit with your doctor. 5. Frequent changes of position and restricting sitting to 30 minutes at a time will help limit the amount of back spasms and stiffness you may experience. 6. You may discontinue the use of ambulatory aids (cane, crutches, etc.) once your strength and confidence allow. 7. You may ground water pump installer the shower and let water strike your incision when you arrive home at least once daily. Do not take a tub bath, sit in a hot tub or go into a swimming pool until after your first recheck in the office. SPECIAL CARE INSTRUCTIONS: VERY IMPORTANT TO READ AND REVIEW A. Your surgical incision has been closed with a cosmetic suture under the skin that will dissolve in about 6 weeks. In 14 days, you can use a pair of clean scissors and cut the suture that is left outside of the skin at the ends of your incision. 1. The small skin tapes can be removed 7 days after surgery if they have not fallen off by that point. 2. You may keep the wound open to air as much as possible to promote healing after post-op day number 5 unless told otherwise by your doctor. 3. If you think the wound looks like it is becoming infected (redness or worsening drainage) and/or you are experiencing fever, chill or worsening back pain and muscle spasms, contact the office so that we may katy luate you as soon as possible. B. Complications are uncommon, but please contact us if you have any signs or symptoms of: 1. wound infection (fever higher than 102.5 degrees F, redness, separation of wound, drainage, or increasing pain from the incision) 2. blood clots in legs (pain, swelling, redness and warmth in legs) 3. urinary tract infection (fever higher than 102.5 degrees F, burning upon urination or increased frequency of urination) 4. nerve problems (inability to walk on your toes or heels, numbness, loss of bowel or bladder control) 5. any other symptoms that concern you C. Please call the office at if you have any concerns or questions about your operation or recovery. D. No smoking! Smoking drastically decreases the chance of a solid fusion. E. Do not take any anti-inflammatory medications (Indocin, Advil, Motrin, As pirin, Naprosyn, etc.) as these may inhibit the chance of a solid fusion. Tylenol is okay to take for pain. MANAGING PAIN AFTER SPINAL SURGERY 1. Narcotic medication is intended for short-term use and will be provided for surgical pain. Surgical pain usually lasts for a period of 4-6 weeks. Narcotic medication includes Percocet, Vicodin, Darvocet, Tylenol #3 or Lortab. 2. Longer-term pain is more appropriately treated with non-narcotic medication such as Tylenol ES. 3. Muscle spasm is not appropriately treated with narcotics. Muscle relaxers such as Soma, Flexeril or Skelaxin can be used along with Tylenol ES. 4. Remember that we all live with some "aches and pains". This is not unusual or uncommon after an injury or as we get older. a. Back pain is expected and may include muscle spasms for 4 to 6 weeks after surgery. The pain should gradually improve. If the pain worsens for no apparent reason, please contact the office. b. Intermittent leg pain may also be experienced and should not be concerned about unless it worsens for no apparent reason. If so, please contact the office. 5. We will provide appropriate medication within the normal guidelines of their prescribed use. We will also be very cautious and aware of potential abuse and extended duration of patients' medication needs. a. Pain medications are for your comfort and to assist with sleep and rest so that the tissue can heal. They are not provided in order to return to normal activity and should not be used through the day. To do so or worsening pain at night can result from ongoing tissue damage and development of tolerance to the prescribed medicine. 6. Please allow 2-3 days to process refills. Prescriptions will not be mailed but must be picked up at the office. FOLLOW UP VISIT: Keep your scheduled follow-up appointment. Any questions, please call the office at . Prescriptions: New tramadol 50 mg Tablet 50 mg PO Q4H PRN (Reason: Pain, Moderate) Qty: 30 RF: 0 oxycodone 5 mg Tablet 5 mg PO Q4H PRN (Reason: Pain, Severe) Qty: 30 RF: 0 Continued lysine [L-Lysine] 500 mg Tablet 500 mg PO DAILY RF: 0 cholecalciferol (vitamin D3) [Vitamin D3] 1,000 unit Capsule 1,000 unit PO DAILY RF: 0 Centrum Silver Women 8 mg iron-400 mcg-300 mcg Tablet 1 tab PO DAILY RF: 0 Stand-Alone Forms: [facility] Discharge Orders: Discharge Order (Routine); Ordered 04/09/19 Ordered By: Nicholas Park Admission Data Admit Date/Time: 04/06/19 16:20 Attending Provider: Nicholas Park Admit Provider: Nicholas Park Primary Care Provider: Edmundo Huynh Other Providers: Tessa Simons ; Dano Gallardo Service: Surgical Services
[2019-04-09] MEDS: CHOLECALCIFEROL 1,000 UNITS TAB PO SCH (09:04)
--- NOTE | 2019-04-09 09:54 | Hospitalist Progress Note ---
Date of Service April 09, 2019 Assessment & Plan (1) Spinal stenosis, lumbar region with neurogenic claudication: POD #3 Lumbar decompression/fusion L4-S1 by Dr. Park Complicated with intraoperative blood loss of 1L EBL 1L; AKIN drain 195ml Pain/wound management per ortho activity and therapy as directed by ortho; recommend bedrest until H/H improved and hemodynamics improved incentive spirometry being discharged today (2) Acute blood loss anemia: Preoperative H&H 14.6 and 42.8 H/H 8.8/25.1 Likely in setting of acute blood loss anemia with intraoperative blood loss 1 L Transfused 2unit PRBC recommmend repeat H/H in 1 week Start iron 325mg daily (3) Cardiac murmur: Prior hx of cardiac murmur last stress echo ~15 yrs ago denies cp/sob, no significant ecg changes 2-3/6 DANIEL noted cardiac apex, mid clavicular line no radiation Echo; the left ventricle is hyperdynamic, there appears to be 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 Guillory hyperdynamic left ventricle in setting of anemia no need for further follow up or tx (4) DVT prophylaxis: SCD/TEDS Disposition: D/C to home later today Follow up: PCP Dr. Huynh upon discharge; repeat H/H in 1 week Patient seen and examined in collaboration with Dr. Simons, please see addendum Thank you for this consultation. We will follow the patient with you during their hospital stay. You can reach a [facility]03 via pager @ [phone]. Supervising Physician Co-Signing Physician Notes Attending addendum; The patient was seen and examined in medical floor She has been feeling a lot better but anxious Denies any significant symptoms On examination No apparent distress at rest but anxious Hemodynamically stable Chest-clear to auscultate bilaterally Heart-S1-S2, regular, 1/6 to 2/6 precordial murmur Abdomen benign- Labs and imaging studies reviewed Status post lumbar decompression/fusion L4-S1, POD #3 Acute blood loss anemia status post transfusion Medically stable to be discharged Agree with assessment and plan as outlined above by Bianka L. Pataky, PA-C Dr M Kristyn Subjective Patient seen and examined in room 387-2 Follow-up lumbar decompression/fusion along with murmur. Patient is doing well today. Is being discharged home this afternoon, "insurance cut me off." Denies fever, chills, sweats, lightheadedness, dizziness, chest pain, shortness of breath, nausea, vomiting, abdominal pain. Had 2 BMs today. Appetite is good. Able to do ADLs on this morning without difficulty. No concerns or questions. Review of Systems Review of Systems: All systems reviewed & are unremarkable except as noted in HPI & below Physical Exam Physical Exam: Gen: WD/WN, female, sitting up in bed, NAD, A&O x3 HEENT: Normocephalic, atraumatic, conjunctivae moist, sclerae anicteric, mucous membranes moist. Lung: Clear to Auscultation bilaterally, no wheezes/rales/rhonchi Heart: Regular rate, regular rhythm, 2/6 systolic murmur heard at apex, no r adiation, no rubs or gallops Abdomen: Soft, NT, ND +BS x 4 Extremities: No edema Skin: Warm, no rash, negative turgor. Results & Data Vital Signs (Past 12 Hours) Vital Signs Temp Pulse Resp BP Pulse Ox 04/09/19 07:14 36.9 C 93 H 16 105/68 96 04/08/19 23:55 36.8 C 88 16 101/63 94 Medications Administered Acetaminophen (Tylenol) 1,000 mg PO Q8H PRN PRN Reason: MILD Pain Rating 1,2,3 Stop: 05/06/19 17:46 Last Admin: 04/08/19 21:24 Dose: 1,000 mg Documented by: [id number] Admin: 04/08/19 11:49 Dose: 1,000 mg Documented by: [id number] Admin: 04/06/19 21:40 Dose: 1,000 mg Documented by: [id number] Lorazepam (Ativan) 0.5 mg PO Q8H PRN PRN Reason: Sedation/Anxiety Stop: 05/06/19 17:46 Last Admin: 04/06/19 23:40 Dose: 0.5 mg Documented by: [id number] Admin: 04/06/19 22:30 Dose: 0.5 mg Documented by: [id number] Magnesium Hydroxide (Milk Of Magnesia) 30 ml PO DAILY PRN PRN Reason: Constipation Stop: 05/06/19 17:46 Last Admin: 04/09/19 06:11 Dose: 30 ml Documented by: [id number] Oxycodone HCl (Roxicodone Immediate Rel) 5 - 10 mg PO Q4H PRN PRN Reason: Moderate-Severe Pain Stop: 04/20/19 17:46 Last Admin: 04/09/19 04:44 Dose: 5 mg Documented by: [id number] Admin: 04/08/19 19:06 Dose: 5 mg Documented by: [id number] Admin: 04/08/19 11:50 Dose: 5 mg Documented by: [id number] Admin: 04/07/19 23:33 Dose: 5 mg Documented by: [id number] Admin: 04/07/19 04:08 Dose: 10 mg Documented by: [id number] Admin: 04/06/19 23:23 Dose: 10 mg Documented by: [id number] Polyethylene Glycol (Miralax Powder Packet) 17 gm PO Q6 RICHA Stop: 05/07/19 05:59 Last Admin: 04/09/19 06:11 Dose: 17 gm Documented by: [id number] Admin: 04/08/19 23:48 Dose: 17 gm Documented by: [id number] Admin: 04/08/19 18:07 Dose: 17 gm Documented by: [id number] Admin: 04/08/19 11:50 Dose: 17 gm Documented by: [id number] Admin: 04/08/19 06:06 Dose: 17 gm Documented by: [id number] Admin: 04/07/19 23:33 Dose: 17 gm Documented by: [id number] Admin: 04/07/19 19:00 Dose: 17 gm Documented by: [id number] Admin: 04/07/19 12:34 Dose: 17 gm Documented by: [id number] Admin: 04/07/19 05:53 Dose: 17 gm Documented by: [id number] Senna/Docusate Sodium (Senokot S) 2 tab PO HS RICHA Stop: 05/06/19 20:59 Last Admin: 04/08/19 21:23 Dose: 2 tab Documented by: [id number] Admin: 04/07/19 19:00 Dose: 2 tab Documented by: [id number] Admin: 04/06/19 21:01 Dose: 2 tab Documented by: [id number] Tramadol HCl (Ultram) 50 - 100 mg PO Q4H PRN PRN Reason: Moderate-Severe pain Stop: 05/06/19 17:46 Last Admin: 04/09/19 08:00 Dose: 50 mg Documented by: [id number] Admin: 04/08/19 05:43 Dose: 100 mg Documented by: [id number] Admin: 04/07/19 19:11 Dose: 100 mg Documented by: [id number] Vitamin D (Vitamin D3) 1,000 units PO DAILY [facility] Stop: 05/07/19 08:59 Last Admin: 04/09/19 09:04 Dose: 1,000 units Documented by: [id number] Admin: 04/08/19 07:42 Dose: 1,000 units Documented by: [id number] Admin: 04/07/19 08:53 Dose: 1,000 units Documented by: [id number] Discontinued Medications Acetaminophen (Tylenol) 1,000 mg PO PREOP RICHA Stop: 04/06/19 18:00 Last Admin: 04/06/19 12:49 Dose: 1,000 mg Documented by: [id number] Bacitracin (Bacitracin) Confirm Administered Dose 50,000 units .ROUTE .STK-MED ONE Stop: 04/06/19 13:16 Last Admin: 04/06/19 14:04 Dose: 50,000 units Documented by: [id number] Bupivacaine HCl/Epinephrine Bitart (Sensorcaine/Epinephrine 0.5% Mpf 1:200,000) Confirm Administered Dose 30 ml .ROUTE .STK-MED ONE Stop: 04/06/19 13:16 Last Admin: 04/06/19 14:04 Dose: 30 ml Documented by: [id number] Celecoxib (Celebrex) 200 mg PO PREOP RICHA Stop: 04/06/19 18:00 Last Admin: 04/06/19 12:49 Dose: 200 mg Documented by: [id number] Gabapentin (Neurontin) 300 mg PO PREOP RICHA Stop: 04/06/19 18:00 Last Admin: 04/06/19 12:49 Dose: 300 mg Documented by: [id number] Lactated Ringer's (Lr) 1,000 mls @ 15 mls/hr IV .Q24H [facility] Stop: 04/07/19 05:59 Last Infusion: 04/06/19 13:25 Dose: 0 mls/hr Documented by: [id number] Admin: 04/06/19 12:44 Dose: 15 mls/hr Documented by: [id number] Cefazolin Sodium (Ancef 1000mg) 1,000 mg in 7.5 mls @ 2.5 mls/min IV PREOP RICHA Stop: 04/06/19 18:00 Last Admin: 04/06/19 13:25 Dose: 2.5 mls/min Documented by: [id number] Lactated Ringer's (Lr) 1,000 mls @ 250 mls/hr IV .Q4H RICHA Stop: 05/06/19 17:46 Last Admin: 04/07/19 21:10 Dose: Not Given Documented by: [id number] Infusion: 04/07/19 21:10 Dose: 0 mls/hr Documented by: [id number] Admin: 04/07/19 18:15 Dose: Not Given Documented by: [id number] Admin: 04/07/19 14:46 Dose: 250 mls/hr Documented by: [id number] Infusion: 04/07/19 10:47 Dose: 250 mls/hr Documented by: [id number] Admin: 04/07/19 06:47 Dose: 250 mls/hr Documented by: [id number] Infusion: 04/07/19 06:19 Dose: 250 mls/hr Documented by: [id number] Admin: 04/07/19 02:19 Dose: 250 mls/hr Documented by: [id number] Infusion: 04/07/19 02:19 Dose: 250 mls/hr Documented by: [id number] Admin: 04/06/19 22:35 Dose: 250 mls/hr Documented by: [id number] Infusion: 04/06/19 22:35 Dose: 250 mls/hr Documented by: [id number] Infusion: 04/06/19 19:40 Dose: 250 mls/hr Documented by: [id number] Admin: 04/06/19 18:24 Dose: 150 mls/hr Documented by: [id number] Cefazolin Sodium (Ancef 1000mg) 1,000 mg in 7.5 mls @ 150 mls/hr IV Q8H RICHA; Protocol Stop: 04/07/19 05:02 Last Admin: 04/07/19 05:53 Dose: 150 mls/hr Documented by: [id number] Admin: 04/06/19 20:53 Dose: 150 mls/hr Documented by: [id number] Dexamethasone Sodium Phosphate (8 mg/ Syringe) 2 mls @ 1 mls/min IV NOW STA Stop: 04/07/19 11:14 Last Admin: 04/07/19 12:27 Dose: 1 mls/min Documented by: [id number] Ketorolac Tromethamine (Toradol) 15 mg IV Q6H RICHA Stop: 04/07/19 12:01 Last Admin: 04/07/19 12:28 Dose: 15 mg Documented by: [id number] Admin: 04/07/19 05:52 Dose: 15 mg Documented by: [id number] Admin: 04/06/19 23:18 Dose: 15 mg Documented by: [id number] Admin: 04/06/19 18:24 Dose: 15 mg Documented by: [id number] Miscellaneous (Floseal Hemostatic Matrix 10ml) 10 ml TOP ONCE ONE Stop: 04/06/19 14:06 Last Admin: 04/06/19 16:14 Dose: 47 ml Documented by: [id number]
[2019-04-09] MEDS ORDERED: FERROUS SULFATE 325 MG TAB PO SCH (10:15)
== END 2019-04-09 14:56 | disposition home health service (06) | DRG 454 ==
LOC: ASU 11:45 → 3E 16:20 → 2E 04-07 14:00 → 3N 04-08 14:24
DX: Z82.49 Family history of ischemic heart disease and other diseases of the circulatory system; R01.1 Cardiac murmur, unspecified; M43.16 Spondylolisthesis, lumbar region; D62 Acute posthemorrhagic anemia; M48.062 Spinal stenosis, lumbar region with neurogenic claudication; Z91.040 Latex allergy status